=== PATIENT | female | born 1955 | race Caucasian/White ===

== ENCOUNTER 2020-06-01 21:01 | Inpatient (IN) | payer BC ==
[~2020-06-01] VITALS: Ht 162.6 cm; Wt 87.1 kg
[2020-06-01] MEDS ORDERED: NITROGLYCERIN 0.4MG TABLET SL SL PRN (22:30)
[2020-06-01] MEDS ORDERED: ASPIRIN 81MG TABLET PO ONE (22:30)
[2020-06-01 23:51] LABS: BASOPHILS % 0.4 % (0.0-2.0); HEMATOCRIT. 38.1 % (36.0-48.0); HEMOGLOBIN. 12.3 g/dL (12.0-16.0); LYMPHOCYTES % 14.8 % (20.0-50.0); MEAN CORPUSCULAR HEMOGLOBIN 27.6 pg (28.0-32.0); MEAN CORPUSCULAR VOLUME 85.3 fL (81.0-99.0); MEAN PLATELET VOLUME 10.2 fl (7.4-10.4); MONOCYTES % 4.4 % (2.0-8.0); NEUTROPHILS % 80.4 % (40.0-76.0); PLATELET 349 x1000/uL (130-400); RED BLOOD CELL COUNT 4.46 mill/uL (4.2-5.4); RED CELL DISTRIBUTION WIDTH 15.5 % (11.6-14.6)
[2020-06-02] VITALS (7 sets, daily range): BP systolic 97–163; BP diastolic 52–69
[2020-06-02 00:07] LABS: CHLORIDE 104 mEq/L (98-107)
[2020-06-02 00:16] LABS: D-DIMER 0.49 mg/L FEU (<0.50); INR 0.9; PARTIAL THROMBOPLASTIN TIME 23.1 sec (23.4-31.0); PROTHROMBIN TIME 9.9 sec (9.6-11.0)
[2020-06-02] MEDS ORDERED: ONDANSETRON HCL 4MG/2ML INJ IV PRN (09:30)
[2020-06-02] MEDS ORDERED: ACETAMINOPHEN 325MG TABLET PO PRN (09:30)
[2020-06-02] MEDS ORDERED: DEXTROSE 50% WATER 50ML SYRINGE IV PRN (09:30)
[2020-06-02] MEDS: DILTIAZEM HCL 30MG TABLET PO SCH ×3 (10:07→23:00)
[2020-06-02] MEDS: ASPIRIN 81MG TABLET PO SCH (10:07)
[2020-06-02] MEDS: BLOOD SUGAR DIAGNOSTIC STRIP TEST SCH ×3 (11:55→20:59)
[2020-06-02] MEDS: INSULIN LISPRO 100 UNITS/ML SUBCUT SCH ×3 (12:50→21:45)
[2020-06-02] MEDS: SODIUM CHLORIDE 0.9% 1,000 ML IV SCH (17:10)
[2020-06-02] MEDS: ATORVASTATIN CALCIUM 40MG TABLET PO SCH (21:44)
[2020-06-02 23:40] LABS: CLARITY URINE CLEAR (CLEAR); COLOR URINE YELLOW (YELLOW); KETONES URINE NEGATIVE (NEGATIVE); LEUKOCYTE ESTERASE URINE NEGATIVE (NEGATIVE); NITRITE URINE NEGATIVE (NEGATIVE); OCCULT BLOOD URINE NEGATIVE (NEGATIVE); PROTEIN URINE NEGATIVE (NEGATIVE); SPECIFIC GRAVITY URINE 1.011 (1.005-1.030); UROBILINOGEN URINE 0.2 E.U./dL (0.2-1.0)
[2020-06-03 04:00] VITALS: BP 133/44
[2020-06-03 06:14] LABS: EOSINOPHILS % 3.3 % (0.0-5.0); HEMATOCRIT. 37.5 % (36.0-48.0); HEMOGLOBIN. 12.5 g/dL (12.0-16.0); LYMPHOCYTES % 41.8 % (20.0-50.0); MEAN CORPUSCULAR HEMOGLOBIN 28.1 pg (28.0-32.0); MEAN CORPUSCULAR VOLUME 84.6 fL (81.0-99.0); MEAN PLATELET VOLUME 9.3 fl (7.4-10.4); MONOCYTES % 5.7 % (2.0-8.0); NEUTROPHILS % 48.2 % (40.0-76.0); PLATELET 300 x1000/uL (130-400); RED BLOOD CELL COUNT 4.43 mill/uL (4.2-5.4); RED CELL DISTRIBUTION WIDTH 15.4 % (11.6-14.6)
[2020-06-03] MEDS: BLOOD SUGAR DIAGNOSTIC STRIP TEST SCH ×4 (06:16→21:00)
[2020-06-03] MEDS: DILTIAZEM HCL 30MG TABLET PO SCH ×3 (06:16→21:47)
[2020-06-03] MEDS: SODIUM CHLORIDE 0.9% 1,000 ML IV SCH ×2 (06:16→19:10)
[2020-06-03 06:21] LABS: CHLORIDE 107 mEq/L (98-107)
[2020-06-03] MEDS: INSULIN LISPRO 100 UNITS/ML SUBCUT SCH ×4 (06:55→21:00)
[2020-06-03 08:00] VITALS: BP 118/67
[2020-06-03] MEDS: ASPIRIN 81MG TABLET PO SCH (08:07)
[2020-06-03 10:54] VITALS: BP 118/67
[2020-06-03 12:00] VITALS: BP 136/68
[2020-06-03] MEDS: IPRATROPIUM/ALBUTEROL 0.5-3(2.5)MG/3ML NEB HHN PRN (14:53)
[2020-06-03 16:00] VITALS: BP 139/63
[2020-06-03 20:00] VITALS: BP_SYST 125; BP_SYST 152; BP_DIAS 46; BP_DIAS 71
[2020-06-03] MEDS: ATORVASTATIN CALCIUM 40MG TABLET PO SCH (21:47)
[2020-06-04] VITALS (7 sets, daily range): BP systolic 124–158; BP diastolic 56–78
[2020-06-04] MEDS: DILTIAZEM HCL 30MG TABLET PO SCH ×3 (05:41→20:54)
[2020-06-04] MEDS: INSULIN LISPRO 100 UNITS/ML SUBCUT SCH ×4 (06:04→21:00)
[2020-06-04] MEDS: BLOOD SUGAR DIAGNOSTIC STRIP TEST SCH ×4 (06:04→21:00)
[2020-06-04] MEDS: IPRATROPIUM/ALBUTEROL 0.5-3(2.5)MG/3ML NEB HHN PRN (06:22)
[2020-06-04] MEDS: ASPIRIN 81MG TABLET PO SCH (08:53)
[2020-06-04] MEDS: SODIUM CHLORIDE 0.9% 1,000 ML IV SCH ×2 (08:53→21:50)
[2020-06-04] MEDS ORDERED: LIP40 PO (16:14)
[2020-06-04] MEDS ORDERED: DILT120C88 MT (16:14)
[2020-06-04] MEDS: ATORVASTATIN CALCIUM 40MG TABLET PO SCH (20:55)
[2020-06-05] VITALS: BP 139/67
[2020-06-05 04:00] VITALS: BP 119/67
[2020-06-05] MEDS: BLOOD SUGAR DIAGNOSTIC STRIP TEST SCH ×2 (06:12→12:54)
[2020-06-05] MEDS: INSULIN LISPRO 100 UNITS/ML SUBCUT SCH ×2 (06:20→13:02)
[2020-06-05] MEDS: DILTIAZEM HCL 30MG TABLET PO SCH ×2 (06:21→13:07)
[2020-06-05 08:00] VITALS: BP 121/66
[2020-06-05] MEDS: ASPIRIN 81MG TABLET PO SCH (08:30)
[2020-06-05] MEDS ORDERED: REGADENOSON 0.4 MG/5 ML IV ONE (11:20)
[2020-06-05 12:00] VITALS: BP 119/67
[2020-06-05] MEDS: SODIUM CHLORIDE 0.9% 1,000 ML IV SCH (13:03)
[2020-06-05 13:52] VITALS: BP 121/67
== END 2020-06-05 15:07 | disposition home or self-care (01) | DRG 206 ==
LOC: EDBD 21:01 → ER 21:01 → 8WST 06-02 01:56 → EDBD 06-02 01:56 → ENRESERV 06-02 04:23
PROVIDERS: ADMIT Internal Medicine; ATTEND Internal Medicine
DX: M94.0 Chondrocostal junction syndrome [Tietze] (principal); I47.1 Supraventricular tachycardia; I50.32 Chronic diastolic (congestive) heart failure; D72.829 Elevated white blood cell count, unspecified; E11.9 Type 2 diabetes mellitus without complications; I16.0 Hypertensive urgency; E66.9 Obesity, unspecified; Z20.822 Contact with and (suspected) exposure to COVID-19; I11.0 Hypertensive heart disease with heart failure; E78.5 Hyperlipidemia, unspecified; Z68.33 Body mass index [BMI] 33.0-33.9, adult; Z71.3 Dietary counseling and surveillance
CPT/HCPCS: 36415; 71045; 78452; 80048; 80053; 80061; 81003; 82962; 83036; 83880; 84443; 84484; 85025; 85379; 87426; 93005; 93017; 93306; 94640; 99285; A9500; J1815; J2785; J7030

== ENCOUNTER 2024-02-21 17:11 | Emergency (ER) | payer BC, MEDICARE ==
[~2024-02-21] VITALS: Ht 165.1 cm; Wt 89.0 kg
[~2024-02-21 17:11] MED LIST: DILT120C88 MT; LIP40 PO
[2024-02-21 17:18] VITALS: PULSE 85; RESP 18; O2SAT 99
[2024-02-21 17:23] VITALS: BP 142/58; TEMP 98
[2024-02-21 18:43] LABS: BASOPHILS % 0.6 % (0.0-2.0); EOSINOPHILS % 4.4 % (0.0-5.0); HEMATOCRIT. 36.2 % (36.0-48.0); HEMOGLOBIN. 11.9 g/dL (12.0-16.0); LYMPHOCYTES % 24.1 % (20.0-50.0); MEAN CORPUSCULAR HEMOGLOBIN 26.5 pg (28.0-32.0); MEAN CORPUSCULAR HGB CONC 32.8 g/dL (31.0-37.0); MEAN CORPUSCULAR VOLUME 80.8 fL (81.0-99.0); MEAN PLATELET VOLUME 9.7 fl (7.4-10.4); MONOCYTES % 8.3 % (2.0-8.0); NEUTROPHILS % 62.6 % (40.0-76.0); PLATELET 308 x1000/uL (130-400); RED BLOOD CELL COUNT 4.49 mill/uL (4.2-5.4); RED CELL DISTRIBUTION WIDTH 18.3 % (11.6-14.6); WHITE BLOOD COUNT 10.2 x1000/uL (4.5-11.0)
[2024-02-21 19:00] LABS: CHLORIDE 107 mEq/L (98-107); POTASSIUM 4.6 mEq/L (3.5-5.1); SODIUM 139 mEq/L (136-145)
[2024-02-21 19:01] LABS: CALCIUM 9.2 mg/dL (8.7-10.4); CARBON DIOXIDE 26 mEq/L (21-32)
[2024-02-21 19:06] LABS: CREATININE 1.2 mg/dL (0.6-1.0); GLUCOSE 173 mg/dL (70-105); UREA NITROGEN BLOOD 29 mg/dL (9-23)
[2024-02-21 19:07] LABS: TROPONIN I HIGH SENSITIVITY 5 ng/L (3.0-34)
== END 2024-02-21 19:53 | disposition left against medical advice (07) ==
LOC: EDBD 17:11 → ER 17:11
DX: R07.89 Other chest pain (principal); Z53.21 Procedure and treatment not carried out due to patient leaving prior to being seen by health care provider
CPT/HCPCS: 36415; 71045; 80048; 84484; 85025; 93005